=== PATIENT | male | born 1940 | race Caucasian/White ===

== ENCOUNTER 2021-05-13 13:19 | Inpatient (IN) ==
[2021-05-13] MEDS ORDERED: Naloxone 0.4 MG/ML INJ IVP PRN (16:17)
[2021-05-13] MEDS ORDERED: Ondansetron 4 MG/2 ML VIAL IVP PRN (16:17)
[2021-05-13] MEDS ORDERED: Acetaminophen 325 MG TABLET PO PRN (16:17)
[2021-05-13 18:01] LABS: Hemoglobin 15.4 g/dL (12.9-16.9); Mean Corpuscular HGB Conc 32.8 g/dL (31.6-35.5); Mean Corpuscular Hemoglobin 32.2 pg (28.0-33.3); Mean Corpuscular Volume 98.3 fL (83.0-100.0); Mean Platelet Volume 11.1 fL (9.4-12.4); Platelet Count 147 K/mcL (140-400); Red Blood Count 4.78 M/mcL (4.19-5.50); Red Cell Distribution Width 13.1 % (11.5-14.5); White Blood Count 3.5 K/mcL (4.3-11.1)
[2021-05-13 18:21] LABS: Albumin 3.7 g/dL (3.5-5.7); Albumin/Globulin Ratio 1.4 (1.1-2.2); Bilirubin,Direct 0.2 mg/dL (0.0-0.2); Bilirubin,Indirect 0.9 mg/dL (0.0-1.0); Bilirubin,Total 1.1 mg/dL (0.3-1.0); Calcium 8.8 mg/dL (8.6-10.3); Globulin 2.7 g/dL (2.4-3.5); Magnesium 1.6 mg/dL (1.6-2.6); Potassium 4.2 mEq/L (3.5-5.1); Total Protein 6.4 g/dL (6.4-8.9)
[2021-05-13 18:36] LABS: Lymphocytes # 0.6 K/mcL (0.6-4.6); Monocytes # 0.7 K/mcL (0.0-1.3); Neutrophils # 2.2 K/mcL (1.6-8.9)
[2021-05-13 18:38] LABS: Platelet Estimate Normal (Normal)
[2021-05-13] MEDS: Ringers Solution, Lactated 1,000 ML IVC SCH (21:49)
[2021-05-14 07:11] LABS: Platelet Count 138 K/mcL (140-400); Red Cell Distribution Width 13.2 % (11.5-14.5)
[2021-05-14 07:13] LABS: Eosinophils # 0.1 K/mcL (0.0-0.6); Hematocrit 44.9 % (37.5-50.1); Immature Platelets 5.2 % (1.1-6.1); Mean Corpuscular HGB Conc 33.4 g/dL (31.6-35.5); Mean Corpuscular Volume 98.7 fL (83.0-100.0); Mean Platelet Volume 11.4 fL (9.4-12.4); Red Blood Count 4.55 M/mcL (4.19-5.50); White Blood Count 6.1 K/mcL (4.3-11.1)
[2021-05-14 08:22] LABS: Albumin 3.7 g/dL (3.5-5.7); Albumin/Globulin Ratio 1.5 (1.1-2.2); Bilirubin,Direct 0.2 mg/dL (0.0-0.2); Bilirubin,Indirect 0.6 mg/dL (0.0-1.0); Bilirubin,Total 0.8 mg/dL (0.3-1.0); Calcium 8.6 mg/dL (8.6-10.3); Globulin 2.4 g/dL (2.4-3.5); Magnesium 1.7 mg/dL (1.6-2.6); Phosphorous 2.9 mg/dL (2.7-4.5); Potassium 3.7 mEq/L (3.5-5.1); Total Protein 6.1 g/dL (6.4-8.9)
[2021-05-14 08:51] LABS: Lymphocytes # 0.9 K/mcL (0.6-4.6); Monocytes # 0.7 K/mcL (0.0-1.3); Neutrophils # 4.4 K/mcL (1.6-8.9); Platelet Estimate Normal (Normal)
[2021-05-14] MEDS: Ringers Solution, Lactated 1,000 ML IVC SCH (10:09)
[2021-05-14] MEDS: Artificial Tears SOLN 15 ML BOTTLE BOTH EYES SCH ×2 (18:22→20:14)
[2021-05-14] MEDS: Latanoprost 2.5 ML BOTTLE BOTH EYES SCH (20:14)
[2021-05-14] MEDS: Multivit/Ca/Min/Fe/FA 1 TAB TABLET PO SCH (20:14)
[2021-05-15 00:52] LABS: Hematocrit 46.1 % (37.5-50.1)
[2021-05-15 00:54] LABS: Hemoglobin 15.2 g/dL (12.9-16.9); Immature Platelets 5.3 % (1.1-6.1); Mean Corpuscular Hemoglobin 32.1 pg (28.0-33.3); Mean Corpuscular Volume 97.5 fL (83.0-100.0); Mean Platelet Volume 11.7 fL (9.4-12.4); Platelet Count 138 K/mcL (140-400); Red Blood Count 4.73 M/mcL (4.19-5.50); White Blood Count 5.1 K/mcL (4.3-11.1)
[2021-05-15 00:55] LABS: Monocytes # 0.9 K/mcL (0.0-1.3)
[2021-05-15 01:14] LABS: Lymphocytes # 0.7 K/mcL (0.6-4.6); Neutrophils # 3.3 K/mcL (1.6-8.9); Platelet Estimate Normal (Normal)
[2021-05-15 01:27] LABS: BUN/Creatinine Ratio 24 (6-26); Blood Urea Nitrogen 28 mg/dL (8-23); Calcium 8.6 mg/dL (8.6-10.3); Carbon Dioxide 20 mEq/L (23-29); Chloride 112 mEq/L (98-107); Glucose 139 mg/dL (70-105); Magnesium 1.6 mg/dL (1.6-2.6); Osmolality,Calculated 306 (280-300); Potassium 3.5 mEq/L (3.5-5.1); Sodium 144 mEq/L (136-145); eGFR For African Americans > 60 (> 60); eGFR For Non-African Americans 60 (> 60)
[2021-05-15] MEDS ORDERED: *HR* Metoprolol 5 MG/5 ML VIAL IVP ONE ×2 (03:40→20:31)
[2021-05-15] MEDS ORDERED: Aspirin Enteric Coated 81 MG Tablet PO SCH (09:00)
[2021-05-15] MEDS ORDERED: Loratadine 10 MG TABLET PO SCH (09:00)
[2021-05-15] MEDS ORDERED: atenoloL 50 MG TABLET PO SCH (09:00)
[2021-05-15] MEDS ORDERED: Ascorbic Acid 500 MG TABLET PO SCH (09:00)
[2021-05-15] MEDS ORDERED: Cholecalciferol (D-3) 1,000 UNIT (25MCG) TABLET PO SCH (09:00)
[2021-05-15] MEDS ORDERED: lisinopriL 20 MG TABLET PO SCH (09:00)
[2021-05-15] MEDS: Artificial Tears SOLN 15 ML BOTTLE BOTH EYES SCH ×4 (09:08→19:29)
[2021-05-15] MEDS: Multivit/Ca/Min/Fe/FA 1 TAB TABLET PO SCH (09:08)
[2021-05-15] MEDS ORDERED: *HR* Metoprolol 5 MG/5 ML VIAL IVP PRN (09:20)
[2021-05-15] MEDS: Ringers Solution, Lactated 1,000 ML IVC SCH (12:34)
[2021-05-15] MEDS: Latanoprost 2.5 ML BOTTLE BOTH EYES SCH (19:29)
[2021-05-16] MEDS: Ringers Solution, Lactated 1,000 ML IVC SCH (00:45)
[2021-05-16] MEDS ORDERED: Levalbuterol Neb 1.25 MG/3 ML IH ONE (01:53)
[2021-05-16] MEDS ORDERED: 0.9 % Sodium Chloride 1,000 ML IVC SCH (06:00)
[2021-05-16] MEDS: DilTIAZem 50 MG/50 ML IV.SOLN IVC SCH ×5 (06:14→22:55)
[2021-05-16] MEDS ORDERED: *HR* Metoprolol 5 MG/5 ML VIAL IVP STA (07:27)
[2021-05-16] MEDS: Artificial Tears SOLN 15 ML BOTTLE BOTH EYES SCH ×4 (09:35→20:40)
[2021-05-16 12:27] LABS: Hematocrit 47.6 % (37.5-50.1); Hemoglobin 15.7 g/dL (12.9-16.9); Mean Corpuscular Hemoglobin 32.6 pg (28.0-33.3); Mean Corpuscular Volume 98.8 fL (83.0-100.0); Mean Platelet Volume 11.5 fL (9.4-12.4); Platelet Count 162 K/mcL (140-400); Red Blood Count 4.82 M/mcL (4.19-5.50); Red Cell Distribution Width 13.2 % (11.5-14.5)
[2021-05-16 12:38] LABS: White Blood Count 11.5 K/mcL (4.3-11.1)
[2021-05-16] MEDS ORDERED: Morphine Sulfate 2 MG/ML SYRINGE IVP ONE (12:38)
[2021-05-16] MEDS ORDERED: *HR* LORazepam 2 MG/ML VIAL IVP ONE (12:39)
[2021-05-16 12:47] LABS: BUN/Creatinine Ratio 22 (6-26); Blood Urea Nitrogen 27 mg/dL (8-23); Carbon Dioxide 24 mEq/L (23-29); Chloride 111 mEq/L (98-107); Glucose 143 mg/dL (70-105); Potassium 3.7 mEq/L (3.5-5.1); Sodium 146 mEq/L (136-145); eGFR For African Americans > 60 (> 60); eGFR For Non-African Americans 57 (> 60)
[2021-05-16 12:48] LABS: Alanine Aminotransferase 9 Units/L (7-52); Albumin 3.6 g/dL (3.5-5.7); Albumin/Globulin Ratio 1.4 (1.1-2.2); Alkaline Phosphatase 49 Units/L (34-104); Aspartate Amino Transferase 13 Units/L (13-39); Bilirubin,Direct 0.2 mg/dL (0.0-0.2); Bilirubin,Indirect 0.6 mg/dL (0.0-1.0); Bilirubin,Total 0.8 mg/dL (0.3-1.0); Calcium 8.6 mg/dL (8.6-10.3); Globulin 2.6 g/dL (2.4-3.5); Magnesium 1.9 mg/dL (1.6-2.6); Osmolality,Calculated 310 (280-300); Total Protein 6.2 g/dL (6.4-8.9)
[2021-05-16 12:54] LABS: Lymphocytes # 1.2 K/mcL (0.6-4.6); Monocytes # 1.2 K/mcL (0.0-1.3); Neutrophils # 9.2 K/mcL (1.6-8.9); Platelet Estimate Normal (Normal)
[2021-05-16] MEDS ORDERED: *HR* Heparin 5,000 UNIT/ML VIAL IVP PRN ×2 (12:54)
[2021-05-16] MEDS ORDERED: *HR* Heparin 5,000 UNIT/ML VIAL IVP ONE (12:54)
[2021-05-16] MEDS ORDERED: *HR* Metoprolol 5 MG/5 ML VIAL IVP PRN (12:55)
[2021-05-16] MEDS ORDERED: Perflutren Lipid Microsphere 1.3 ML in 0.9 % Sodium Chloride 8.7 ML IVP PRN (12:59)
[2021-05-16] MEDS ORDERED: Heparin 25,000UNIT/250ML 1/2NS 25,000 UNIT/250 ML IV.SOLN IVC SCH (13:00)
[2021-05-16 14:41] LABS: Hematocrit 48.1 % (37.5-50.1); Hemoglobin 15.8 g/dL (12.9-16.9); Mean Corpuscular HGB Conc 32.8 g/dL (31.6-35.5); Mean Corpuscular Hemoglobin 32.4 pg (28.0-33.3); Mean Corpuscular Volume 98.8 fL (83.0-100.0); Mean Platelet Volume 11.7 fL (9.4-12.4); Platelet Count 165 K/mcL (140-400); Red Blood Count 4.87 M/mcL (4.19-5.50); Red Cell Distribution Width 13.3 % (11.5-14.5); White Blood Count 11.2 K/mcL (4.3-11.1)
[2021-05-16 14:58] LABS: Heparin anti-factor XA UFH < 0.04 IU/mL (0.30-0.70); INR 1.4; Prothrombin Time 16.1 Seconds (9.4-12.1)
[2021-05-16] MEDS ORDERED: D5% in 0.45% NACL 1,000 ML IVC SCH (15:00)
[2021-05-16 15:01] LABS: Activated Partial Thrombo Time 25.4 Seconds (26.0-36.0)
[2021-05-16] MEDS: Latanoprost 2.5 ML BOTTLE BOTH EYES SCH (20:40)
[2021-05-17] MEDS ORDERED: *HR* Metoprolol 5 MG/5 ML VIAL IVP ONE (00:20)
[2021-05-17] MEDS: D5% in Lactated Ringers 1,000 ML IVC SCH ×2 (00:31→11:55)
[2021-05-17] MEDS: DilTIAZem 50 MG/50 ML IV.SOLN IVC SCH ×2 (04:23→09:12)
[2021-05-17 05:00] LABS: Basophils # 0.1 K/mcL (0.0-0.2); Basophils % 0.7 %; Eosinophils # 0.5 K/mcL (0.0-0.6); Eosinophils % 4.5 %; Hematocrit 44.5 % (37.5-50.1); Hemoglobin 14.3 g/dL (12.9-16.9); Immature Granulocytes % 1.3 % (0-4); Lymphocytes % 9.5 %; Mean Corpuscular HGB Conc 32.1 g/dL (31.6-35.5); Mean Corpuscular Hemoglobin 31.9 pg (28.0-33.3); Mean Corpuscular Volume 99.3 fL (83.0-100.0); Mean Platelet Volume 11.4 fL (9.4-12.4); Monocytes # 1.3 K/mcL (0.0-1.3); Monocytes % 12.3 %; Neutrophils # 7.5 K/mcL (1.6-8.9); Platelet Count 157 K/mcL (140-400); Red Blood Count 4.48 M/mcL (4.19-5.50); Red Cell Distribution Width 13.4 % (11.5-14.5); Segmented Neutrophils % 71.7 %; White Blood Count 10.5 K/mcL (4.3-11.1)
[2021-05-17 05:15] LABS: Alanine Aminotransferase 7 Units/L (7-52); Albumin 3.2 g/dL (3.5-5.7); Albumin/Globulin Ratio 1.3 (1.1-2.2); Alkaline Phosphatase 45 Units/L (34-104); Aspartate Amino Transferase 11 Units/L (13-39); BUN/Creatinine Ratio 20 (6-26); Bilirubin,Direct 0.2 mg/dL (0.0-0.2); Bilirubin,Indirect 0.4 mg/dL (0.0-1.0); Bilirubin,Total 0.6 mg/dL (0.3-1.0); Blood Urea Nitrogen 22 mg/dL (8-23); Carbon Dioxide 27 mEq/L (23-29); Chloride 114 mEq/L (98-107); Globulin 2.4 g/dL (2.4-3.5); Glucose 140 mg/dL (70-105); Magnesium 1.9 mg/dL (1.6-2.6); Osmolality,Calculated 310 (280-300); Potassium 3.5 mEq/L (3.5-5.1); Sodium 147 mEq/L (136-145); Total Protein 5.6 g/dL (6.4-8.9); eGFR For African Americans > 60 (> 60); eGFR For Non-African Americans > 60 (> 60)
[2021-05-17] MEDS: *HR* Heparin 5,000 UNIT/ML VIAL SQ SCH ×2 (09:12→17:46)
[2021-05-17] MEDS: Artificial Tears SOLN 15 ML BOTTLE BOTH EYES SCH ×4 (09:15→20:54)
[2021-05-17] MEDS ORDERED: DilTIAZem 125 MG in 0.9 % Sodium Chloride 50 MG/100 ML IV.SOLN IVC SCH (13:00)
[2021-05-17] MEDS: Latanoprost 2.5 ML BOTTLE BOTH EYES SCH (20:54)
[2021-05-18 02:21] LABS: Hemoglobin 13.9 g/dL (12.9-16.9); Mean Corpuscular HGB Conc 32.3 g/dL (31.6-35.5); Mean Corpuscular Hemoglobin 32.2 pg (28.0-33.3); Mean Corpuscular Volume 99.5 fL (83.0-100.0); Mean Platelet Volume 11.1 fL (9.4-12.4); Platelet Count 142 K/mcL (140-400); Red Blood Count 4.32 M/mcL (4.19-5.50); Red Cell Distribution Width 13.5 % (11.5-14.5); White Blood Count 10.2 K/mcL (4.3-11.1)
[2021-05-18 03:20] LABS: Albumin 3.1 g/dL (3.5-5.7); Albumin/Globulin Ratio 1.3 (1.1-2.2); BUN/Creatinine Ratio 15 (6-26); Bilirubin,Direct 0.1 mg/dL (0.0-0.2); Bilirubin,Indirect 0.4 mg/dL (0.0-1.0); Bilirubin,Total 0.5 mg/dL (0.3-1.0); Blood Urea Nitrogen 14 mg/dL (8-23); Calcium 8.3 mg/dL (8.6-10.3); Carbon Dioxide 29 mEq/L (23-29); Chloride 115 mEq/L (98-107); Globulin 2.3 g/dL (2.4-3.5); Glucose 114 mg/dL (70-105); Magnesium 1.8 mg/dL (1.6-2.6); Osmolality,Calculated 309 (280-300); Potassium 3.5 mEq/L (3.5-5.1); Sodium 149 mEq/L (136-145); Total Protein 5.4 g/dL (6.4-8.9); eGFR For African Americans > 60 (> 60); eGFR For Non-African Americans > 60 (> 60)
[2021-05-18] MEDS: Artificial Tears SOLN 15 ML BOTTLE BOTH EYES SCH ×4 (07:36→21:17)
[2021-05-18] MEDS: *HR* Heparin 5,000 UNIT/ML VIAL SQ SCH ×2 (07:36→18:39)
[2021-05-18] MEDS ORDERED: Potassium Phosphate 44 MEQ in 0.9 % Sodium Chloride 250 ML IVPB ONE (07:44)
[2021-05-18] MEDS ORDERED: D5% in Water 1,000 ML IVC SCH (07:45)
[2021-05-18] MEDS ORDERED: Aspirin 81 MG TAB.CHEW PO SCH (09:00)
[2021-05-18] MEDS: Metoclopramide 10 MG/2 ML VIAL IVP SCH (18:39)
[2021-05-18] MEDS: Latanoprost 2.5 ML BOTTLE BOTH EYES SCH (22:26)
[2021-05-19] MEDS: Metoclopramide 10 MG/2 ML VIAL IVP SCH ×3 (00:33→12:43)
[2021-05-19 02:02] LABS: BUN/Creatinine Ratio 13 (6-26); Blood Urea Nitrogen 12 mg/dL (8-23); Calcium 8.3 mg/dL (8.6-10.3); Carbon Dioxide 29 mEq/L (23-29); Chloride 110 mEq/L (98-107); Glucose 111 mg/dL (70-105); Osmolality,Calculated 302 (280-300); Potassium 3.6 mEq/L (3.5-5.1); Sodium 146 mEq/L (136-145); eGFR For African Americans > 60 (> 60); eGFR For Non-African Americans > 60 (> 60)
[2021-05-19] MEDS: *HR* Heparin 5,000 UNIT/ML VIAL SQ SCH (05:50)
[2021-05-19 05:56] VITALS: TEMP 98.2
[2021-05-19] MEDS ORDERED: Methylnaltrexone 12 MG/0.6 ML SYRINGE SQ ONE (07:09)
[2021-05-19 08:57] VITALS: BP 141/78; PULSE 93; O2SAT 96
[2021-05-19] MEDS ORDERED: Bisacodyl 10 MG RECTAL SUPPOSITORY RC SCH (09:00)
== END 2021-05-19 13:10 | disposition home or self-care (01) | DRG 389 ==
LOC: 3ANU → SUATTDRO 15:54 → 3ANU 16:51 → SUATTDRO 05-14 13:13 → 2NENU 05-16 20:03
PROVIDERS: ADMIT Pharmacist; ATTEND Internal Medicine

== ENCOUNTER 2022-06-11 15:13 | Inpatient (IN) ==
[2022-06-11 19:59] LABS: Hemoglobin 13.9 g/dL (12.9-16.9); Immature Platelets 5.5 % (1.1-6.1); Mean Corpuscular HGB Conc 33.1 g/dL (31.6-35.5); Mean Corpuscular Volume 96.6 fL (83.0-100.0); Mean Platelet Volume 11.3 fL (9.4-12.4); Red Blood Count 4.35 M/mcL (4.19-5.50); Red Cell Distribution Width 13.7 % (11.5-14.5); White Blood Count 6.8 K/mcL (4.3-11.1)
[2022-06-11 20:07] LABS: INR 1.3; Prothrombin Time 14.8 Seconds (9.4-12.1)
[2022-06-11 20:20] LABS: BUN/Creatinine Ratio 8 (6-26); Blood Urea Nitrogen 7 mg/dL (8-23); Carbon Dioxide 24 mEq/L (23-29); Chloride 111 mEq/L (98-107); Glucose 96 mg/dL (70-105); Osmolality,Calculated 294 (280-300); Potassium 3.5 mEq/L (3.5-5.1); Sodium 143 mEq/L (136-145); Troponin I < 0.03 ng/mL (< 0.04)
[2022-06-11 20:42] LABS: Activated Partial Thrombo Time 30.2 Seconds (26.0-36.0)
[2022-06-11] MEDS ORDERED: *HR* Heparin 5,000 UNIT/ML VIAL IVP PRN ×2 (20:49)
[2022-06-11] MEDS ORDERED: Heparin 25,000UNIT/250ML 1/2NS 25,000 UNIT/250 ML IV.SOLN IVC SCH ×2 (21:00→22:45)
[2022-06-12] MEDS ORDERED: Ondansetron 4 MG/2 ML VIAL IVP PRN (04:08)
[2022-06-12] MEDS ORDERED: Naloxone 0.4 MG/ML INJ IVP PRN (04:08)
[2022-06-12] MEDS ORDERED: Melatonin 3 MG TABLET PO PRN (04:08)
[2022-06-12 06:06] LABS: INR 1.4; Prothrombin Time 15.1 Seconds (9.4-12.1)
[2022-06-12 06:08] LABS: Activated Partial Thrombo Time 30.2 Seconds (26.0-36.0)
[2022-06-12 08:24] LABS: Hemoglobin 13.6 g/dL (12.9-16.9); Immature Granulocytes % 0.5 % (0-4); Mean Corpuscular Volume 96.3 fL (83.0-100.0)
[2022-06-12 08:26] LABS: Basophils # 0.1 K/mcL (0.0-0.2); Basophils % 1.4 %; Eosinophils # 0.6 K/mcL (0.0-0.6); Eosinophils % 8.6 %; Hematocrit 41.1 % (37.5-50.1); Immature Platelets 6.3 % (1.1-6.1); Lymphocytes # 0.7 K/mcL (0.6-4.6); Lymphocytes % 11.2 %; Mean Corpuscular HGB Conc 33.1 g/dL (31.6-35.5); Mean Corpuscular Hemoglobin 31.9 pg (28.0-33.3); Mean Platelet Volume 11.2 fL (9.4-12.4); Monocytes # 0.4 K/mcL (0.0-1.3); Monocytes % 6.5 %; Platelet Count 120 K/mcL (140-400); Red Blood Count 4.27 M/mcL (4.19-5.50); Red Cell Distribution Width 13.7 % (11.5-14.5); Segmented Neutrophils % 71.8 %; White Blood Count 6.6 K/mcL (4.3-11.1)
[2022-06-12 08:28] LABS: Neutrophils # 4.7 K/mcL (1.6-8.9)
[2022-06-12 08:42] LABS: Calcium 9.3 mg/dL (8.6-10.3); Potassium 3.8 mEq/L (3.5-5.1)
[2022-06-12 08:44] LABS: Albumin 3.3 g/dL (3.5-5.7); Albumin/Globulin Ratio 1.3 (1.1-2.2); Bilirubin,Direct 0.3 mg/dL (0.0-0.2); Bilirubin,Total 1.3 mg/dL (0.3-1.0); Globulin 2.6 g/dL (2.4-3.5); Total Protein 5.9 g/dL (6.4-8.9)
[2022-06-12] MEDS: Heparin 25,000UNIT/250ML 1/2NS 25,000 UNIT/250 ML IV.SOLN IVC SCH (21:00)
[2022-06-12] MEDS: cephALEXin 500 MG CAPSULE PO SCH (21:00)
[2022-06-12 21:34] LABS: Heparin anti-factor XA UFH 0.39 IU/mL (0.30-0.70); INR 1.2; Prothrombin Time 13.6 Seconds (9.4-12.1)
[2022-06-12 21:35] LABS: Hematocrit 40.5 % (37.5-50.1); Hemoglobin 13.4 g/dL (12.9-16.9); Immature Platelets 5.9 % (1.1-6.1); Mean Corpuscular HGB Conc 33.1 g/dL (31.6-35.5); Mean Corpuscular Hemoglobin 31.8 pg (28.0-33.3); Mean Corpuscular Volume 96.2 fL (83.0-100.0); Mean Platelet Volume 11.2 fL (9.4-12.4); Red Blood Count 4.21 M/mcL (4.19-5.50); Red Cell Distribution Width 13.4 % (11.5-14.5); White Blood Count 6.7 K/mcL (4.3-11.1)
[2022-06-13] MEDS: Heparin 25,000UNIT/250ML 1/2NS 25,000 UNIT/250 ML IV.SOLN IVC SCH (05:14)
[2022-06-13 06:35] LABS: Basophils # 0.1 K/mcL (0.0-0.2); Basophils % 1.1 %; Eosinophils # 0.6 K/mcL (0.0-0.6); Eosinophils % 9.1 %; Hematocrit 40.8 % (37.5-50.1); Hemoglobin 13.5 g/dL (12.9-16.9); Immature Granulocytes % 0.3 % (0-4); Immature Platelets 5.5 % (1.1-6.1); Lymphocytes # 0.7 K/mcL (0.6-4.6); Mean Corpuscular HGB Conc 33.1 g/dL (31.6-35.5); Mean Corpuscular Hemoglobin 31.5 pg (28.0-33.3); Mean Corpuscular Volume 95.1 fL (83.0-100.0); Mean Platelet Volume 11.3 fL (9.4-12.4); Monocytes # 0.4 K/mcL (0.0-1.3); Monocytes % 6.5 %; Neutrophils # 4.7 K/mcL (1.6-8.9); Platelet Count 128 K/mcL (140-400); Red Blood Count 4.29 M/mcL (4.19-5.50); Red Cell Distribution Width 13.5 % (11.5-14.5); White Blood Count 6.5 K/mcL (4.3-11.1)
[2022-06-13 06:48] LABS: Potassium 3.7 mEq/L (3.5-5.1)
[2022-06-13] MEDS: cephALEXin 500 MG CAPSULE PO SCH ×2 (09:11→23:03)
[2022-06-13] MEDS: Sennosides/Docusate Sodium TABLET PO SCH (18:49)
[2022-06-13] MEDS: Cholecalciferol (D-3) 1,000 UNIT (25MCG) TABLET PO SCH (18:50)
[2022-06-13] MEDS: Latanoprost 2.5 ML BOTTLE BOTH EYES SCH (23:03)
[2022-06-14 04:11] LABS: Mean Corpuscular Hemoglobin 31.6 pg (28.0-33.3)
[2022-06-14 04:13] LABS: Hematocrit 43.5 % (37.5-50.1); Hemoglobin 14.5 g/dL (12.9-16.9); Mean Corpuscular HGB Conc 33.3 g/dL (31.6-35.5); Mean Corpuscular Volume 94.8 fL (83.0-100.0); Mean Platelet Volume 11.8 fL (9.4-12.4); Red Blood Count 4.59 M/mcL (4.19-5.50); Red Cell Distribution Width 13.4 % (11.5-14.5); White Blood Count 7.9 K/mcL (4.3-11.1)
[2022-06-14] MEDS: cephALEXin 500 MG CAPSULE PO SCH (09:23)
[2022-06-14] MEDS: Loratadine 10 MG TABLET PO SCH (09:23)
[2022-06-14] MEDS: Heparin 25,000UNIT/250ML 1/2NS 25,000 UNIT/250 ML IV.SOLN IVC SCH (12:00)
[2022-06-14] MEDS: Sennosides/Docusate Sodium TABLET PO SCH (16:59)
[2022-06-14] MEDS: Cholecalciferol (D-3) 1,000 UNIT (25MCG) TABLET PO SCH (16:59)
[2022-06-14] MEDS: Latanoprost 2.5 ML BOTTLE BOTH EYES SCH (21:29)
[2022-06-14] MEDS: traZODone 50 MG TABLET PO SCH (21:29)
[2022-06-15] MEDS: Acetaminophen 325 MG TABLET PO PRN (08:30)
[2022-06-15] MEDS: Loratadine 10 MG TABLET PO SCH (08:30)
[2022-06-15 08:35] LABS: Mean Corpuscular Hemoglobin 32.1 pg (28.0-33.3); Red Cell Distribution Width 13.5 % (11.5-14.5)
[2022-06-15 08:37] LABS: Hematocrit 45.3 % (37.5-50.1); Hemoglobin 15.1 g/dL (12.9-16.9); Immature Platelets 5.6 % (1.1-6.1); Mean Corpuscular HGB Conc 33.3 g/dL (31.6-35.5); Mean Corpuscular Volume 96.4 fL (83.0-100.0); Mean Platelet Volume 11.3 fL (9.4-12.4); Red Blood Count 4.7 M/mcL (4.19-5.50); White Blood Count 11.3 K/mcL (4.3-11.1)
[2022-06-15 15:39] LABS: Bacteria,Urine Many per hpf (None-Few); Bilirubin,Urine Negative (Negative); Blood,Urine Small (Negative); Clarity,Urine Turbid (Clear); Color,Urine Yellow (Yellow); Glucose,Urine (UA) Normal (Normal); Ketones,Urine Negative (Negative); Leukocyte Esterase,Urine Large (Negative); Mucus,Urine Many per lpf (None-Few); Nitrite,Urine Positive (Negative); Protein,Urine 70 mg/dL (Neg-Trace); RBC,Urine 15-30 per hpf (0-3); Specific Gravity,Urine 1.025 (1.010-1.025); WBC,Urine TNTC per hpf (0-3)
[2022-06-15] MEDS: Cholecalciferol (D-3) 1,000 UNIT (25MCG) TABLET PO SCH (17:41)
[2022-06-15] MEDS: Sennosides/Docusate Sodium TABLET PO SCH (17:41)
[2022-06-15] MEDS: Metoprolol XL (24 HR) Succ 25 MG TAB.ER.24H PO SCH (17:41)
[2022-06-15] MEDS: traZODone 50 MG TABLET PO SCH (20:57)
[2022-06-15] MEDS: Latanoprost 2.5 ML BOTTLE BOTH EYES SCH (20:58)
[2022-06-15] MEDS: cefTRIAXone 1,000 MG in Water for inj. (sterile) 10 ML IVP SCH (21:00)
[2022-06-16 03:31] LABS: Hematocrit 43.4 % (37.5-50.1); Hemoglobin 14.3 g/dL (12.9-16.9); Immature Platelets 4.7 % (1.1-6.1); Mean Corpuscular HGB Conc 32.9 g/dL (31.6-35.5); Mean Corpuscular Hemoglobin 31.5 pg (28.0-33.3); Mean Corpuscular Volume 95.6 fL (83.0-100.0); Mean Platelet Volume 10.9 fL (9.4-12.4); Red Blood Count 4.54 M/mcL (4.19-5.50); Red Cell Distribution Width 13.6 % (11.5-14.5); White Blood Count 10.8 K/mcL (4.3-11.1)
[2022-06-16] MEDS: Heparin 25,000UNIT/250ML 1/2NS 25,000 UNIT/250 ML IV.SOLN IVC SCH (04:14)
[2022-06-16 04:21] LABS: Calcium 9.2 mg/dL (8.6-10.3); Potassium 4.3 mEq/L (3.5-5.1)
[2022-06-16] MEDS: Metoprolol XL (24 HR) Succ 25 MG TAB.ER.24H PO SCH (09:13)
[2022-06-16] MEDS: Loratadine 10 MG TABLET PO SCH (09:14)
[2022-06-16] MEDS: Sennosides/Docusate Sodium TABLET PO SCH (17:26)
[2022-06-16] MEDS: Cholecalciferol (D-3) 1,000 UNIT (25MCG) TABLET PO SCH (17:26)
[2022-06-16] MEDS: traZODone 50 MG TABLET PO SCH (20:57)
[2022-06-16] MEDS: cefTRIAXone 1,000 MG in Water for inj. (sterile) 10 ML IVP SCH (20:59)
[2022-06-16] MEDS: Latanoprost 2.5 ML BOTTLE BOTH EYES SCH (21:00)
[2022-06-17 08:21] LABS: Hemoglobin 13.1 g/dL (12.9-16.9); Mean Corpuscular Volume 95.1 fL (83.0-100.0)
[2022-06-17 08:23] LABS: Hematocrit 38.8 % (37.5-50.1); Mean Corpuscular HGB Conc 33.8 g/dL (31.6-35.5); Mean Corpuscular Hemoglobin 32.1 pg (28.0-33.3); Mean Platelet Volume 11.3 fL (9.4-12.4); Red Blood Count 4.08 M/mcL (4.19-5.50); Red Cell Distribution Width 13.7 % (11.5-14.5); White Blood Count 10.4 K/mcL (4.3-11.1)
[2022-06-17] MEDS: Metoprolol XL (24 HR) Succ 25 MG TAB.ER.24H PO SCH (09:13)
[2022-06-17] MEDS: Loratadine 10 MG TABLET PO SCH (09:14)
[2022-06-17] MEDS ORDERED: *HR* Metoprolol 5 MG/5 ML VIAL IVP ONE ×3 (10:30→10:37)
[2022-06-17] MEDS ORDERED: *HR* Metoprolol 5 MG/5 ML VIAL IVP PRN (11:16)
[2022-06-17] MEDS ORDERED: 0.9 % Sodium Chloride 1,000 ML IVC SCH (14:45)
[2022-06-17 15:02] LABS: Heparin anti-factor XA UFH < 0.04 IU/mL (0.30-0.70)
[2022-06-17 15:03] LABS: INR 1.3; Prothrombin Time 14.9 Seconds (9.4-12.1)
[2022-06-17] MEDS ORDERED: *HR* Digoxin 0.5 MG/2 ML AMPUL IVP ONE (17:51)
[2022-06-17] MEDS: Cholecalciferol (D-3) 1,000 UNIT (25MCG) TABLET PO SCH (17:54)
[2022-06-17] MEDS: Sennosides/Docusate Sodium TABLET PO SCH (17:57)
[2022-06-17] MEDS ORDERED: Warfarin perPT PO PRN (18:00)
[2022-06-17] MEDS ORDERED: *HR* Warfarin 5 MG TABLET PO ONE (18:00)
[2022-06-17] MEDS ORDERED: CefTRIAXone 1,000 MG VIAL ONE (20:13)
[2022-06-17] MEDS: Acetaminophen 325 MG TABLET PO PRN (20:31)
[2022-06-17] MEDS: Melatonin 3 MG TABLET PO SCH (20:32)
[2022-06-17] MEDS: cefTRIAXone 1,000 MG in Water for inj. (sterile) 10 ML IVP SCH (20:33)
[2022-06-17] MEDS: Latanoprost 2.5 ML BOTTLE BOTH EYES SCH (20:34)
[2022-06-18] MEDS ORDERED: *HR* Digoxin 0.5 MG/2 ML AMPUL IVP PRN (01:00)
[2022-06-18 05:04] LABS: Heparin anti-factor XA UFH 0.06 IU/mL (0.30-0.70); INR 1.3
[2022-06-18 05:05] LABS: Red Cell Distribution Width 13.9 % (11.5-14.5)
[2022-06-18 05:07] LABS: Hematocrit 40.2 % (37.5-50.1); Hemoglobin 13.1 g/dL (12.9-16.9); Immature Platelets 9.9 % (1.1-6.1); Mean Corpuscular HGB Conc 32.6 g/dL (31.6-35.5); Mean Corpuscular Hemoglobin 31.9 pg (28.0-33.3); Mean Corpuscular Volume 97.8 fL (83.0-100.0); Mean Platelet Volume 11.7 fL (9.4-12.4); Red Blood Count 4.11 M/mcL (4.19-5.50); White Blood Count 9.2 K/mcL (4.3-11.1)
[2022-06-18 05:26] LABS: Calcium 8.9 mg/dL (8.6-10.3); Potassium 3.7 mEq/L (3.5-5.1)
[2022-06-18] MEDS ORDERED: Metoprolol XL (24 HR) Succ 25 MG TAB.ER.24H PO SCH (08:00)
[2022-06-18] MEDS: Metoprolol XL (24 HR) Succ 25 MG TAB.ER.24H PO SCH (08:25)
[2022-06-18] MEDS: Loratadine 10 MG TABLET PO SCH (08:26)
[2022-06-18] MEDS ORDERED: Heparin 25,000UNIT/250ML 1/2NS 25,000 UNIT/250 ML IV.SOLN IVC SCH ×3 (11:45→13:15)
[2022-06-18] MEDS: Heparin 25,000UNIT/250ML 1/2NS 25,000 UNIT/250 ML IV.SOLN IVC SCH ×3 (15:44→15:46)
[2022-06-18] MEDS ORDERED: *HR* Warfarin 2.5 MG TABLET PO ONE (18:00)
[2022-06-18] MEDS: Cholecalciferol (D-3) 1,000 UNIT (25MCG) TABLET PO SCH (18:28)
[2022-06-18] MEDS: Sennosides/Docusate Sodium TABLET PO SCH (18:28)
[2022-06-18] MEDS: cefTRIAXone 1,000 MG in Water for inj. (sterile) 10 ML IVP SCH (20:02)
[2022-06-18] MEDS: Melatonin 3 MG TABLET PO SCH (20:02)
[2022-06-18] MEDS: Latanoprost 2.5 ML BOTTLE BOTH EYES SCH (20:17)
[2022-06-19 05:24] LABS: Hematocrit 41.4 % (37.5-50.1); Hemoglobin 13.7 g/dL (12.9-16.9); Mean Corpuscular HGB Conc 33.1 g/dL (31.6-35.5); Mean Corpuscular Hemoglobin 31.7 pg (28.0-33.3); Mean Corpuscular Volume 95.8 fL (83.0-100.0); Platelet Count 147 K/mcL (140-400); Red Blood Count 4.32 M/mcL (4.19-5.50); Red Cell Distribution Width 13.9 % (11.5-14.5); White Blood Count 7.7 K/mcL (4.3-11.1)
[2022-06-19 05:43] LABS: Prothrombin Time 21.7 Seconds (9.4-12.1)
[2022-06-19 05:46] LABS: Calcium 8.9 mg/dL (8.6-10.3); Potassium 3.7 mEq/L (3.5-5.1)
[2022-06-19 07:03] VITALS: TEMP 98.2; O2SAT 95
[2022-06-19] MEDS: Loratadine 10 MG TABLET PO SCH (08:52)
[2022-06-19] MEDS: Metoprolol XL (24 HR) Succ 25 MG TAB.ER.24H PO SCH (08:52)
[2022-06-19 14:58] VITALS: BP 155/67; PULSE 89
[2022-06-19 15:46] LABS: Influenza A PCR Negative (Negative); Influenza B PCR Negative (Negative); Resp. Syncytial Virus PCR Negative (Negative)
[2022-06-19 15:52] LABS: SARS-CoV-2 by PCR (In House) Negative (Negative)
[2022-06-19] MEDS: Cholecalciferol (D-3) 1,000 UNIT (25MCG) TABLET PO SCH (17:50)
[2022-06-19] MEDS: Sennosides/Docusate Sodium TABLET PO SCH (17:50)
[2022-06-19] MEDS ORDERED: *HR* Warfarin 0.5 MG TABLET PO SCH (18:00)
== END 2022-06-19 19:51 | DRG 175 ==
LOC: EMEROOARM 15:13 → 3BNU 15:13 → SUATTDRO 06-12 13:02 → OBSVTOIN 06-12 13:02 → 3BNU 06-12 13:55 → 3NENU 06-12 23:44
PROVIDERS: ADMIT Internal Medicine; ATTEND Internal Medicine

== ENCOUNTER 2022-06-25 10:35 | Inpatient (IN) ==
[2022-06-25] MEDS ORDERED: cefTRIAXone 2,000 MG in 0.9 % Sodium Chloride Mini Bag 100 ML IVPB ONE ×2 (14:13→14:45)
[2022-06-25] MEDS: 0.9 % Sodium Chloride 1,000 ML IV ONE ×2 (14:41→18:31)
[2022-06-25 14:56] LABS: Basophils # 0.1 K/mcL (0.0-0.2); Basophils % 0.3 %; Eosinophils % 0.1 %; Hematocrit 38.5 % (37.5-50.1); Hemoglobin 12.6 g/dL (12.9-16.9); Immature Granulocytes % 0.7 % (0-4); Lymphocytes # 0.4 K/mcL (0.6-4.6); Lymphocytes % 2.6 %; Mean Corpuscular HGB Conc 32.7 g/dL (31.6-35.5); Mean Corpuscular Volume 97.7 fL (83.0-100.0); Mean Platelet Volume 10.6 fL (9.4-12.4); Monocytes # 0.5 K/mcL (0.0-1.3); Neutrophils # 14.5 K/mcL (1.6-8.9); Platelet Count 217 K/mcL (140-400); Red Blood Count 3.94 M/mcL (4.19-5.50); Red Cell Distribution Width 14.2 % (11.5-14.5); Segmented Neutrophils % 93.3 %
[2022-06-25 15:02] LABS: INR 1.6; Prothrombin Time 17.5 Seconds (9.4-12.1)
[2022-06-25 15:04] LABS: Activated Partial Thrombo Time 26.6 Seconds (26.0-36.0)
[2022-06-25 15:05] LABS: White Blood Count 15.5 K/mcL (4.3-11.1)
[2022-06-25 15:09] LABS: Bilirubin,Urine Negative (Negative); Blood,Urine Large (Negative); Clarity,Urine Ex.Turbid (Clear); Color,Urine Yellow (Yellow); Glucose,Urine (UA) Normal (Normal); Ketones,Urine Negative (Negative); Leukocyte Esterase,Urine Negative (Negative); Nitrite,Urine Negative (Negative); Protein,Urine 70 mg/dL (Neg-Trace); Urobilinogen,Urine Normal (Normal)
[2022-06-25 15:17] LABS: RBC,Urine TNTC per hpf (0-3); WBC,Urine Present per hpf (0-3)
[2022-06-25 15:18] LABS: Bacteria,Urine Present per hpf (None-Few)
[2022-06-25 15:18] LABS: Albumin 3.1 g/dL (3.5-5.7); Bilirubin,Total 0.8 mg/dL (0.3-1.0); Calcium 9.5 mg/dL (8.6-10.3); Globulin 3.1 g/dL (2.4-3.5); Potassium 4.5 mEq/L (3.5-5.1); Total Protein 6.2 g/dL (6.4-8.9)
[2022-06-25] MEDS ORDERED: Melatonin 3 MG TABLET PO PRN (15:44)
[2022-06-25] MEDS ORDERED: Ondansetron 4 MG/2 ML VIAL IVP PRN (15:44)
[2022-06-25] MEDS ORDERED: MOM Conc 10 ML UD.LIQ PO PRN (15:44)
[2022-06-25] MEDS ORDERED: Naloxone 0.4 MG/ML INJ IVP PRN (15:44)
[2022-06-25] MEDS ORDERED: 0.9 % Sodium Chloride 1,000 ML IVC SCH (15:45)
[2022-06-25] MEDS: Heparin 25,000UNIT/250ML 1/2NS 25,000 UNIT/250 ML IV.SOLN IVC SCH (18:30)
[2022-06-25] MEDS: Metoprolol XL (24 HR) Succ 25 MG TAB.ER.24H PO SCH (18:32)
[2022-06-26 02:22] LABS: Basophils # 0.1 K/mcL (0.0-0.2); Basophils % 0.8 %; Eosinophils # 0.4 K/mcL (0.0-0.6); Eosinophils % 3.5 %; Hematocrit 38.8 % (37.5-50.1); Hemoglobin 12.3 g/dL (12.9-16.9); Immature Granulocytes % 0.7 % (0-4); Lymphocytes # 0.9 K/mcL (0.6-4.6); Lymphocytes % 7.6 %; Mean Corpuscular HGB Conc 31.7 g/dL (31.6-35.5); Mean Corpuscular Hemoglobin 31.5 pg (28.0-33.3); Mean Corpuscular Volume 99.2 fL (83.0-100.0); Mean Platelet Volume 10.6 fL (9.4-12.4); Monocytes # 0.5 K/mcL (0.0-1.3); Monocytes % 4.3 %; Neutrophils # 9.6 K/mcL (1.6-8.9); Platelet Count 204 K/mcL (140-400); Red Blood Count 3.91 M/mcL (4.19-5.50); Red Cell Distribution Width 14.5 % (11.5-14.5); Segmented Neutrophils % 83.1 %; White Blood Count 11.5 K/mcL (4.3-11.1)
[2022-06-26 02:41] LABS: Calcium 9.1 mg/dL (8.6-10.3); Magnesium 2.1 mg/dL (1.6-2.6); Potassium 4.3 mEq/L (3.5-5.1)
[2022-06-26 04:27] LABS: Heparin anti-factor XA UFH 0.04 IU/mL (0.30-0.70)
[2022-06-26 06:49] LABS: INR 1.9; Prothrombin Time 20.7 Seconds (9.4-12.1)
[2022-06-26] MEDS: Metoprolol XL (24 HR) Succ 25 MG TAB.ER.24H PO SCH (08:28)
[2022-06-26] MEDS ORDERED: cefTRIAXone 1,000 MG in 0.9 % Sodium Chloride 10 ML IVP SCH (09:00)
[2022-06-26] MEDS ORDERED: Loratadine 10 MG TABLET PO SCH (09:00)
[2022-06-26] MEDS ORDERED: *HR* Propofol 200 MG/20 ML VIAL IVP ONE (13:08)
[2022-06-26] MEDS ORDERED: *HR* FentaNYL (PF) 100 MCG/2 ML VIAL ONE (13:08)
[2022-06-26] MEDS ORDERED: Lidocaine -MPF 2% 5 ML VIAL ONE (13:10)
[2022-06-26] MEDS ORDERED: *HR* Phenylephrine 10 MG/ML VIAL ONE (13:51)
[2022-06-26] MEDS ORDERED: Ondansetron 4 MG/2 ML VIAL ONE (14:22)
[2022-06-26] MEDS ORDERED: Sugammadex Sodium 200 MG/2 ML VIAL IV ONE (14:45)
[2022-06-26] MEDS ORDERED: *HR* HYDROmorphone (PF) 1 MG/ML SYRINGE IVP PRN (15:50)
[2022-06-26] MEDS ORDERED: *HR* Labetalol 20 MG/4 ML SYRINGE IVP PRN (15:50)
[2022-06-26] MEDS ORDERED: Acetaminophen IV 1,000 MG/100 ML BAG IVPB ONE (15:50)
[2022-06-26] MEDS ORDERED: Warfarin perPT PO PRN ×2 (18:00)
[2022-06-26] MEDS ORDERED: Cholecalciferol (D-3) 1,000 UNIT (25MCG) TABLET PO SCH (18:00)
[2022-06-26] MEDS ORDERED: *HR* Warfarin 1 MG TABLET PO ONE (18:00)
[2022-06-26] MEDS ORDERED: Sennosides/Docusate Sodium TABLET PO SCH (18:00)
[2022-06-26] MEDS ORDERED: Latanoprost 2.5 ML BOTTLE BOTH EYES SCH (21:00)
[2022-06-26] MEDS ORDERED: Naloxone 0.4 MG/ML INJ IVP PRN (22:42)
[2022-06-26] MEDS ORDERED: Ondansetron 4 MG/2 ML VIAL IVP PRN (22:42)
[2022-06-26] MEDS ORDERED: Heparin 25,000UNIT/250ML 1/2NS 25,000 UNIT/250 ML IV.SOLN IVC SCH (22:42)
[2022-06-26] MEDS ORDERED: MOM Conc 10 ML UD.LIQ PO PRN (22:42)
[2022-06-27] MEDS: Heparin 25,000UNIT/250ML 1/2NS 25,000 UNIT/250 ML IV.SOLN IVC SCH (03:29)
[2022-06-27 06:29] LABS: INR 3.3; Prothrombin Time 36.7 Seconds (9.4-12.1)
[2022-06-27] MEDS: cefTRIAXone 1,000 MG in 0.9 % Sodium Chloride 10 ML IVP SCH (09:43)
[2022-06-27] MEDS: Loratadine 10 MG TABLET PO SCH (09:44)
[2022-06-27] MEDS: Metoprolol XL (24 HR) Succ 25 MG TAB.ER.24H PO SCH (09:44)
[2022-06-27] MEDS: Sennosides/Docusate Sodium TABLET PO SCH (17:41)
[2022-06-27] MEDS: Cholecalciferol (D-3) 1,000 UNIT (25MCG) TABLET PO SCH (17:42)
[2022-06-27] MEDS: Melatonin 3 MG TABLET PO PRN (20:25)
[2022-06-27] MEDS: Latanoprost 2.5 ML BOTTLE BOTH EYES SCH (20:26)
[2022-06-28 03:22] LABS: Hematocrit 35.6 % (37.5-50.1); Hemoglobin 11.4 g/dL (12.9-16.9); Mean Corpuscular Hemoglobin 31.5 pg (28.0-33.3); Mean Corpuscular Volume 98.3 fL (83.0-100.0); Mean Platelet Volume 11.1 fL (9.4-12.4); Platelet Count 236 K/mcL (140-400); Red Blood Count 3.62 M/mcL (4.19-5.50); Red Cell Distribution Width 13.8 % (11.5-14.5)
[2022-06-28 03:40] LABS: Potassium 3.8 mEq/L (3.5-5.1)
[2022-06-28] MEDS: Loratadine 10 MG TABLET PO SCH (09:52)
[2022-06-28] MEDS: Metoprolol XL (24 HR) Succ 25 MG TAB.ER.24H PO SCH (09:52)
[2022-06-28] MEDS: cefTRIAXone 1,000 MG in 0.9 % Sodium Chloride 10 ML IVP SCH (09:56)
[2022-06-28 11:34] LABS: INR 1.8; Prothrombin Time 20.1 Seconds (9.4-12.1)
[2022-06-28] MEDS: Cholecalciferol (D-3) 1,000 UNIT (25MCG) TABLET PO SCH (17:18)
[2022-06-28] MEDS: Sennosides/Docusate Sodium TABLET PO SCH (17:18)
[2022-06-28] MEDS ORDERED: *HR* Warfarin 1 MG TABLET PO ONE (18:00)
[2022-06-28] MEDS: Melatonin 3 MG TABLET PO PRN (19:46)
[2022-06-28] MEDS: Latanoprost 2.5 ML BOTTLE BOTH EYES SCH (19:47)
[2022-06-29 02:27] LABS: INR 1.6; Prothrombin Time 17.5 Seconds (9.4-12.1)
[2022-06-29] MEDS: Loratadine 10 MG TABLET PO SCH (09:58)
[2022-06-29] MEDS: Metoprolol XL (24 HR) Succ 25 MG TAB.ER.24H PO SCH (09:58)
[2022-06-29] MEDS: Cholecalciferol (D-3) 1,000 UNIT (25MCG) TABLET PO SCH (17:43)
[2022-06-29] MEDS: Sennosides/Docusate Sodium TABLET PO SCH (17:44)
[2022-06-29] MEDS ORDERED: *HR* Warfarin 1 MG TABLET PO ONE (18:00)
[2022-06-29] MEDS: Latanoprost 2.5 ML BOTTLE BOTH EYES SCH (21:23)
[2022-06-30 05:17] LABS: INR 1.4; Prothrombin Time 15.1 Seconds (9.4-12.1)
[2022-06-30] MEDS: Loratadine 10 MG TABLET PO SCH (08:08)
[2022-06-30] MEDS: Metoprolol XL (24 HR) Succ 25 MG TAB.ER.24H PO SCH (08:08)
[2022-06-30] MEDS: Heparin 25,000UNIT/250ML 1/2NS 25,000 UNIT/250 ML IV.SOLN IVC SCH (08:23)
[2022-06-30] MEDS ORDERED: *HR* Warfarin 1 MG TABLET PO ONE (18:00)
[2022-06-30] MEDS: Sennosides/Docusate Sodium TABLET PO SCH (18:17)
[2022-06-30] MEDS: Cholecalciferol (D-3) 1,000 UNIT (25MCG) TABLET PO SCH (18:17)
[2022-06-30] MEDS: Latanoprost 2.5 ML BOTTLE BOTH EYES SCH (20:57)
[2022-07-01 04:48] LABS: Hematocrit 39.4 % (37.5-50.1); Hemoglobin 12.6 g/dL (12.9-16.9); Mean Corpuscular Hemoglobin 31.1 pg (28.0-33.3); Mean Corpuscular Volume 97.3 fL (83.0-100.0); Mean Platelet Volume 10.7 fL (9.4-12.4); Platelet Count 224 K/mcL (140-400); Red Blood Count 4.05 M/mcL (4.19-5.50); Red Cell Distribution Width 13.6 % (11.5-14.5); White Blood Count 7.9 K/mcL (4.3-11.1)
[2022-07-01 04:57] LABS: INR 1.3; Prothrombin Time 14.2 Seconds (9.4-12.1)
[2022-07-01 05:06] LABS: Calcium 9.4 mg/dL (8.6-10.3); Potassium 3.5 mEq/L (3.5-5.1)
[2022-07-01] MEDS: Loratadine 10 MG TABLET PO SCH (08:30)
[2022-07-01] MEDS: Metoprolol XL (24 HR) Succ 25 MG TAB.ER.24H PO SCH (08:30)
[2022-07-01] MEDS ORDERED: Petrolatum, White OINT.PACK TP PRN (11:09)
[2022-07-01] MEDS: Heparin 25,000UNIT/250ML 1/2NS 25,000 UNIT/250 ML IV.SOLN IVC SCH (13:00)
[2022-07-01] MEDS: Cholecalciferol (D-3) 1,000 UNIT (25MCG) TABLET PO SCH (17:55)
[2022-07-01] MEDS: Sennosides/Docusate Sodium TABLET PO SCH (17:55)
[2022-07-01] MEDS ORDERED: *HR* Warfarin 2 MG TABLET PO ONE (18:00)
[2022-07-01] MEDS: QUEtiapine Fumarate 25 MG TABLET PO SCH (20:00)
[2022-07-01] MEDS: Melatonin 3 MG TABLET PO PRN (20:00)
[2022-07-01] MEDS: Latanoprost 2.5 ML BOTTLE BOTH EYES SCH (20:01)
[2022-07-02 05:54] LABS: Heparin anti-factor XA UFH 0.45 IU/mL (0.30-0.70); INR 1.5; Prothrombin Time 16.3 Seconds (9.4-12.1)
[2022-07-02] MEDS: Heparin 25,000UNIT/250ML 1/2NS 25,000 UNIT/250 ML IV.SOLN IVC SCH ×2 (07:47→20:11)
[2022-07-02] MEDS: Metoprolol XL (24 HR) Succ 25 MG TAB.ER.24H PO SCH (07:47)
[2022-07-02] MEDS: Loratadine 10 MG TABLET PO SCH (07:48)
[2022-07-02] MEDS: Sennosides/Docusate Sodium TABLET PO SCH (17:04)
[2022-07-02] MEDS: Cholecalciferol (D-3) 1,000 UNIT (25MCG) TABLET PO SCH (17:05)
[2022-07-02] MEDS ORDERED: *HR* Warfarin 2 MG TABLET PO ONE (18:00)
[2022-07-02] MEDS: QUEtiapine Fumarate 25 MG TABLET PO SCH (20:34)
[2022-07-02] MEDS: Latanoprost 2.5 ML BOTTLE BOTH EYES SCH (20:34)
[2022-07-03] MEDS: Metoprolol XL (24 HR) Succ 25 MG TAB.ER.24H PO SCH (08:20)
[2022-07-03] MEDS: Loratadine 10 MG TABLET PO SCH (08:20)
[2022-07-03 09:24] LABS: Heparin anti-factor XA UFH 0.39 IU/mL (0.30-0.70); INR 1.6; Prothrombin Time 17.8 Seconds (9.4-12.1)
[2022-07-03] MEDS ORDERED: *HR* Warfarin 2.5 MG TABLET PO ONE (18:00)
[2022-07-03] MEDS: Cholecalciferol (D-3) 1,000 UNIT (25MCG) TABLET PO SCH (18:06)
[2022-07-03] MEDS: Sennosides/Docusate Sodium TABLET PO SCH (18:06)
[2022-07-03] MEDS: QUEtiapine Fumarate 25 MG TABLET PO SCH (21:13)
[2022-07-03] MEDS: Latanoprost 2.5 ML BOTTLE BOTH EYES SCH (21:14)
[2022-07-03] MEDS: Heparin 25,000UNIT/250ML 1/2NS 25,000 UNIT/250 ML IV.SOLN IVC SCH (22:09)
[2022-07-04 04:16] LABS: INR 1.6
[2022-07-04] MEDS: Loratadine 10 MG TABLET PO SCH (09:02)
[2022-07-04] MEDS: Metoprolol XL (24 HR) Succ 25 MG TAB.ER.24H PO SCH (09:02)
[2022-07-04] MEDS ORDERED: *HR* Warfarin 2.5 MG TABLET PO ONE (18:00)
[2022-07-04] MEDS: Sennosides/Docusate Sodium TABLET PO SCH (18:12)
[2022-07-04] MEDS: Cholecalciferol (D-3) 1,000 UNIT (25MCG) TABLET PO SCH (18:12)
[2022-07-04] MEDS: QUEtiapine Fumarate 25 MG TABLET PO SCH (20:18)
[2022-07-04] MEDS: Melatonin 3 MG TABLET PO PRN (20:19)
[2022-07-04] MEDS: Latanoprost 2.5 ML BOTTLE BOTH EYES SCH (20:33)
[2022-07-04 22:43] VITALS: O2SAT 96
[2022-07-05] MEDS: Heparin 25,000UNIT/250ML 1/2NS 25,000 UNIT/250 ML IV.SOLN IVC SCH (02:11)
[2022-07-05 06:41] VITALS: PULSE 81
[2022-07-05 08:15] LABS: INR 1.7; Prothrombin Time 18.7 Seconds (9.4-12.1)
[2022-07-05] MEDS: Metoprolol XL (24 HR) Succ 25 MG TAB.ER.24H PO SCH (09:55)
[2022-07-05] MEDS: Loratadine 10 MG TABLET PO SCH (09:55)
[2022-07-05 11:27] VITALS: BP 143/68; TEMP 98.3
[2022-07-05] MEDS ORDERED: *HR* Warfarin 3 MG TABLET PO ONE (18:00)
== END 2022-07-05 16:15 | DRG 699 ==
LOC: EMEROOARM 10:35 → 3NENU 10:35 → SUATTDRO 06-26 08:03
PROVIDERS: ADMIT Hospitalist; ATTEND Internal Medicine

== ENCOUNTER 2022-07-27 17:53 | Inpatient (IN) ==
[2022-07-27] MEDS ORDERED: 0.9 % Sodium Chloride 1,000 ML IV ONE (18:13)
[2022-07-27 18:38] LABS: Basophils % 0.6 %; Eosinophils # 0.2 K/mcL (0.0-0.6); Eosinophils % 3.4 %; Hematocrit 41.2 % (37.5-50.1); Hemoglobin 12.9 g/dL (12.9-16.9); Immature Granulocytes % 0.8 % (0-4); Lymphocytes # 0.7 K/mcL (0.6-4.6); Lymphocytes % 11.2 %; Mean Corpuscular HGB Conc 31.3 g/dL (31.6-35.5); Mean Corpuscular Hemoglobin 30.4 pg (28.0-33.3); Mean Corpuscular Volume 97.2 fL (83.0-100.0); Mean Platelet Volume 10.7 fL (9.4-12.4); Monocytes # 0.6 K/mcL (0.0-1.3); Neutrophils # 4.8 K/mcL (1.6-8.9); Platelet Count 222 K/mcL (140-400); Red Blood Count 4.24 M/mcL (4.19-5.50); Red Cell Distribution Width 13.5 % (11.5-14.5); White Blood Count 6.4 K/mcL (4.3-11.1)
[2022-07-27 18:49] LABS: Activated Partial Thrombo Time 72.9 Seconds (26.0-36.0)
[2022-07-27 18:54] LABS: Calcium 9.2 mg/dL (8.6-10.3); Potassium 3.7 mEq/L (3.5-5.1); Troponin I 0.05 ng/mL (< 0.04)
[2022-07-27 19:23] LABS: INR 19.4; Prothrombin Time 210.8 Seconds (9.4-12.1)
[2022-07-27] MEDS ORDERED: Melatonin 3 MG TABLET PO PRN (22:42)
[2022-07-27] MEDS ORDERED: Naloxone 0.4 MG/ML INJ IVP PRN (22:42)
[2022-07-27] MEDS ORDERED: Ondansetron ODT 4 MG TAB.RAPDIS SL PRN (22:42)
[2022-07-27] MEDS ORDERED: D5% in Water 1,000 ML IVC SCH (23:30)
[2022-07-27 23:48] LABS: Amorphous Sediment,Urine Few per hpf (None-Few); Bacteria,Urine Moderate per hpf (None-Few); Bilirubin,Urine Negative (Negative); Blood,Urine Trace (Negative); Clarity,Urine Turbid (Clear); Color,Urine Yellow (Yellow); Glucose,Urine (UA) Normal (Normal); Hyaline Casts,Urine Few per lpf (None Seen); Ketones,Urine 10 mg/dL (Negative); Leukocyte Esterase,Urine Large (Negative); Mucus,Urine Many per lpf (None-Few); Nitrite,Urine Positive (Negative); Protein,Urine 30 mg/dL (Neg-Trace); Specific Gravity,Urine 1.025 (1.010-1.025); Squamous Epithelial Cell,Urine Few per hpf (None-Few); Urobilinogen,Urine Normal (Normal); WBC,Urine TNTC per hpf (0-3)
[2022-07-28] MEDS: cefTRIAXone 1,000 MG in 0.9 % Sodium Chloride 10 ML IVP SCH (00:27)
[2022-07-28 05:12] LABS: Hematocrit 37.9 % (37.5-50.1); Hemoglobin 12.1 g/dL (12.9-16.9); Mean Corpuscular HGB Conc 31.9 g/dL (31.6-35.5); Mean Corpuscular Hemoglobin 30.8 pg (28.0-33.3); Mean Corpuscular Volume 96.4 fL (83.0-100.0); Mean Platelet Volume 10.5 fL (9.4-12.4); Platelet Count 197 K/mcL (140-400); Red Blood Count 3.93 M/mcL (4.19-5.50); Red Cell Distribution Width 13.7 % (11.5-14.5); White Blood Count 7.5 K/mcL (4.3-11.1)
[2022-07-28 05:31] LABS: Prothrombin Time 22.5 Seconds (9.4-12.1)
[2022-07-28 05:34] LABS: Albumin 2.8 g/dL (3.5-5.7); Albumin/Globulin Ratio 1.1 (1.1-2.2); Bilirubin,Total 0.6 mg/dL (0.3-1.0); Calcium 8.6 mg/dL (8.6-10.3); Globulin 2.5 g/dL (2.4-3.5); Magnesium 1.7 mg/dL (1.6-2.6); Phosphorous 2.6 mg/dL (2.7-4.5); Potassium 3.4 mEq/L (3.5-5.1); Total Protein 5.3 g/dL (6.4-8.9); Troponin I 0.03 ng/mL (< 0.04)
[2022-07-28] MEDS ORDERED: Potassium Chloride Elixir 20 MEQ/15 ML UDC PO ONE (10:05)
[2022-07-28 12:35] LABS: INR 1.6; Prothrombin Time 18.1 Seconds (9.4-12.1)
[2022-07-28 12:37] LABS: Calcium 8.5 mg/dL (8.6-10.3); Potassium 3.3 mEq/L (3.5-5.1)
[2022-07-28] MEDS: Loratadine 10 MG TABLET PO SCH (15:50)
[2022-07-28 17:28] LABS: Calcium 8.6 mg/dL (8.6-10.3); Potassium 3.4 mEq/L (3.5-5.1)
[2022-07-28] MEDS ORDERED: D5% in Water 1,000 ML IVC SCH (18:00)
[2022-07-28] MEDS: Latanoprost 2.5 ML BOTTLE BOTH EYES SCH (20:03)
[2022-07-28 23:09] LABS: Calcium 8.5 mg/dL (8.6-10.3); Potassium 3.2 mEq/L (3.5-5.1)
[2022-07-29 09:32] LABS: Basophils # 0.1 K/mcL (0.0-0.2); Eosinophils # 0.4 K/mcL (0.0-0.6); Eosinophils % 5.5 %; Hematocrit 41.3 % (37.5-50.1); Hemoglobin 13.4 g/dL (12.9-16.9); Lymphocytes # 0.7 K/mcL (0.6-4.6); Lymphocytes % 11.1 %; Mean Corpuscular HGB Conc 32.4 g/dL (31.6-35.5); Mean Corpuscular Hemoglobin 30.7 pg (28.0-33.3); Mean Corpuscular Volume 94.5 fL (83.0-100.0); Mean Platelet Volume 10.6 fL (9.4-12.4); Monocytes # 0.4 K/mcL (0.0-1.3); Monocytes % 6.1 %; Neutrophils # 4.9 K/mcL (1.6-8.9); Platelet Count 182 K/mcL (140-400); Red Blood Count 4.37 M/mcL (4.19-5.50); Red Cell Distribution Width 13.4 % (11.5-14.5); Segmented Neutrophils % 73.3 %; White Blood Count 6.7 K/mcL (4.3-11.1)
[2022-07-29 09:40] LABS: INR 1.4; Prothrombin Time 15.4 Seconds (9.4-12.1)
[2022-07-29] MEDS: cefTRIAXone 1,000 MG in 0.9 % Sodium Chloride 10 ML IVP SCH (09:45)
[2022-07-29] MEDS: Loratadine 10 MG TABLET PO SCH (09:45)
[2022-07-29 09:49] LABS: Calcium 8.7 mg/dL (8.6-10.3); Potassium 3.4 mEq/L (3.5-5.1)
[2022-07-29] MEDS ORDERED: Potassium Chloride Elixir 20 MEQ/15 ML UDC PO ONE ×2 (09:54→14:30)
[2022-07-29] MEDS ORDERED: Iopamidol - 370 500 ML MLS IVP ONE (18:47)
[2022-07-29] MEDS: Latanoprost 2.5 ML BOTTLE BOTH EYES SCH (21:51)
[2022-07-30 05:44] LABS: Basophils # 0.1 K/mcL (0.0-0.2); Basophils % 0.8 %; Eosinophils # 0.3 K/mcL (0.0-0.6); Eosinophils % 4.2 %; Hematocrit 36.8 % (37.5-50.1); Hemoglobin 11.9 g/dL (12.9-16.9); Immature Granulocytes % 1.9 % (0-4); Lymphocytes % 13.6 %; Mean Corpuscular HGB Conc 32.3 g/dL (31.6-35.5); Mean Corpuscular Hemoglobin 30.4 pg (28.0-33.3); Mean Corpuscular Volume 94.1 fL (83.0-100.0); Mean Platelet Volume 10.3 fL (9.4-12.4); Monocytes # 0.5 K/mcL (0.0-1.3); Monocytes % 6.7 %; Neutrophils # 5.3 K/mcL (1.6-8.9); Platelet Count 176 K/mcL (140-400); Red Blood Count 3.91 M/mcL (4.19-5.50); Red Cell Distribution Width 13.5 % (11.5-14.5); Segmented Neutrophils % 72.8 %; White Blood Count 7.3 K/mcL (4.3-11.1)
[2022-07-30 05:52] LABS: INR 1.3; Prothrombin Time 14.7 Seconds (9.4-12.1)
[2022-07-30 06:14] LABS: Calcium 8.5 mg/dL (8.6-10.3); Potassium 3.6 mEq/L (3.5-5.1)
[2022-07-30] MEDS ORDERED: Gadolinium Contrast Agent (WT Based) IV PRN (08:09)
[2022-07-30] MEDS: Loratadine 10 MG TABLET PO SCH (08:20)
[2022-07-30] MEDS: cefTRIAXone 1,000 MG in 0.9 % Sodium Chloride 10 ML IVP SCH (08:21)
[2022-07-30 15:52] VITALS: TEMP 98.2
[2022-07-30] MEDS: Latanoprost 2.5 ML BOTTLE BOTH EYES SCH (20:02)
[2022-07-30 20:16] VITALS: BP 121/49; PULSE 100; O2SAT 93
[2022-07-30] MEDS ORDERED: Sennosides/Docusate Sodium TABLET PO SCH (21:00)
== END 2022-07-30 23:59 | disposition other institution (70) | DRG 947 ==
LOC: EMEROOARM 17:53 → 3NENU 17:53 → SUATTDRO 21:10 → 3NENU 22:06
PROVIDERS: ADMIT Internal Medicine; ATTEND Internal Medicine